=== PATIENT | male | born 1980 | race Caucasian/White ===

== ENCOUNTER 2022-09-26 09:35 | Emergency (ER) | payer OTHER ==
[~2022-09-26] VITALS: Ht 172.7 cm; Wt 106.6 kg
[2022-09-26 09:50] VITALS: BP_SYST 176
[2022-09-26] MEDS ORDERED: HYDROcodone/ACETAMIN 5-325 MG TAB (NORCO/ VICODIN) PO ONE (10:00)
[2022-09-26] MEDS ORDERED: ONDANSETRON 4 MG ODT TAB PO ONE (10:00)
[2022-09-26] MEDS ORDERED: HYDR-3917 PO ×3 (10:53→13:42)
[2022-09-26 11:32] VITALS: BP_SYST 176
== END 2022-09-26 11:31 | disposition home or self-care (01) ==
LOC: SED 09:35
DX: S92.351A Displaced fracture of fifth metatarsal bone, right foot, initial encounter for closed fracture (principal); Z79.899 Other long term (current) drug therapy; W11.XXXA Fall on and from ladder, initial encounter; Y93.89 Activity, other specified; Y92.89 Other specified places as the place of occurrence of the external cause; Y99.8 Other external cause status
CPT/HCPCS: 99284; 29515; 73590; 73610; 73630; Q0162

== ENCOUNTER 2022-10-19 08:59 | Outpatient (CLI) | payer OTHER ==
[~2022-10-19 08:59] MED LIST: HYDR-3917 PO
== END 2022-10-19 18:26 | disposition home or self-care (01) ==
LOC: SRD 08:59
PROVIDERS: ATTEND Student in an Organized Health Care Education/Training Program
DX: S92.351A Displaced fracture of fifth metatarsal bone, right foot, initial encounter for closed fracture (principal); M77.31 Calcaneal spur, right foot; X58.XXXA Exposure to other specified factors, initial encounter; Y93.89 Activity, other specified; Y92.89 Other specified places as the place of occurrence of the external cause; Y99.8 Other external cause status

== ENCOUNTER 2022-12-15 08:45 | Outpatient (CLI) | payer OTHER | END 2022-12-15 18:58 | disposition home or self-care (01) | LOC: SRD 08:45 | PROVIDERS: ATTEND Student in an Organized Health Care Education/Training Program | DX: S92.351D Displaced fracture of fifth metatarsal bone, right foot, subsequent encounter for fracture with routine healing (principal); X58.XXXD Exposure to other specified factors, subsequent encounter ==